=== PATIENT | female | born 1935 | race Two or more races ===

== ENCOUNTER 2017-08-28 18:43 | Inpatient (IN) | payer OTHER, MEDICARE ==
[~2017-08-28] VITALS: Ht 165.1 cm; Wt 74.6 kg
--- NOTE | 2017-08-28 19:10 | NUR ---
OK FOR PT TO HAVE BLANKET PER DR HOPSON.
--- NOTE | 2017-08-28 19:13 | NUR ---
REPORT GIVEN TO JAVIER ARELLANO TO ASSUME CARE FOR THIS PT.
--- NOTE | 2017-08-28 19:14 | NUR ---
Patient brought in by ambulance to be evaluated for the complaint of nausea, vomiting, and confusion which began approximately eight hours prior to arrival. Per bingo usher, the patient had three episodes of emesis today and two episodes while in route to the hospital. Patient also have a complaint of cough, headache & tactile fever, Patient is opening eyes to verbal stimuli and only oriented to name, , current location, and is not oriented to current time. Medical eval completed by Dr. Pugh.
[2017-08-28 20:03] LABS: microscopic required? NO
--- NOTE | 2017-08-28 20:07 | NUR ---
BEDPAN PLACED UNDER PT.
[2017-08-28 20:11] LABS: PLATELET COUNT 212 x10^3mcL (130-400)
[2017-08-28 20:13] LABS: UA SPECIFIC GRAVITY 1.015 (1.005-1.035); urine erythrocyte NEGATIVE (NEGATIVE)
[2017-08-28 20:14] LABS: BASOPHIL % 0 % (0-2); RED CELL DISTRIBUTION WIDTH 16.2 % (11.5-14.5)
--- NOTE | 2017-08-28 20:16 | NUR ---
PTS SON IS @ BEDSIDE.
[2017-08-28 20:31] LABS: CALCIUM 9.2 mg/dL (8.5-10.1); CARBON DIOXIDE 26.9 mmol/L (21-32); CHLORIDE SERUM 98 mmol/L (98-107); CREATININE SERUM 0.8 mg/dL (0.6-1.0); GLUCOSE SERUM 305 mg/dL (74-106); POTASSIUM SERUM 4.2 mmol/L (3.5-5.1); SODIUM SERUM 134 mmol/L (136-145)
[2017-08-28 20:36] LABS: ALBUMIN 3.8 g/dL (3.4-5.0); ALKALINE PHOSPHATASE 60 U/L (46-116); ALT/SGPT 21 U/L (14-59); AST/SGOT 17 U/L (15-37); FREE T4 1.15 ng/dL (0.76-1.46); TOTAL PROTEIN, SERUM 7.3 g/dL (6.4-8.2)
--- NOTE | 2017-08-28 20:39 | NUR ---
PT RESTING COMFORTABLY @ BEDSIDE.
[2017-08-28] MEDS ORDERED: STOOL SOFTENER100 MG PO (21:33)
[2017-08-28] MEDS ORDERED: LOSARTAN POTASS25 M1 PO (21:33)
[2017-08-28] MEDS ORDERED: FERROUS SULFAT325 M2 PO (21:33)
[2017-08-28] MEDS ORDERED: METFORMIN HCL1000 MG PO (21:34)
[2017-08-28] MEDS ORDERED: GLIPIZIDE5 M2 PO (21:34)
[2017-08-28] MEDS ORDERED: ASPIR 8181 MG PO (21:35)
[2017-08-28] MEDS ORDERED: JANUVIA50 M1 PO (21:35)
--- NOTE | 2017-08-28 21:39 | NUR ---
PT WAS AGGITATED AND WOULDNT KEEP ARM STRAIGHT, ARMBOARD WAS PLACED ON LEFT AC TO CONTINUE IV INFUSION.
--- NOTE | 2017-08-28 21:55 | NUR ---
PT LEFT TO CT.
--- NOTE | 2017-08-28 22:38 | NUR ---
REPORT GIVEN TO FELIX
[2017-08-29] VITALS (7 sets, daily range): BP systolic 97–118; BP diastolic 52–59; Ht 165.1 cm; Wt 74.6 kg
--- NOTE | 2017-08-29 00:30 | NUR ---
LP DONE AT BEDSIDE BY DR HOPSON.
[2017-08-29 01:33] LABS: MAGNESIUM 1.6 mg/dL (1.8-2.4); PHOSPHOROUS 2.9 mg/dL (2.5-4.9)
[2017-08-29 01:34] LABS: CHOLESTEROL/HDL RATIO 2.5
[2017-08-29 01:38] LABS: TOTAL PROTEIN CSF 45.6 mg/dL (15-45)
[2017-08-29 01:40] LABS: T3 TOTAL 1.03 ng/mL
[2017-08-29 01:44] LABS: FREE T4 1.23 ng/dL (0.76-1.46); FREE THYROXINE INDEX 3.5 ug/dL (1.4-4.5); T4(THYROXINE) 9.6 ug/dL (4.7-13.3)
[2017-08-29 02:00] LABS: APPEARANCE CSF HAZY; COLOR CSF PINK; WBC CSF 50 /cumm (0-5)
[2017-08-29 02:01] LABS: COLOR CSF LIGHT YELLOW; LYMPHOCYTE CSF 4 % (40-80); RBC CSF 9808 /cumm (0)
[2017-08-29 02:02] LABS: APPEARANCE CSF HAZY; LYMPHOCYTE CSF 3 % (40-80); MONOCYTE CSF 1 %; RBC CSF 170 /cumm (0); WBC CSF 40 /cumm (0-5)
--- NOTE | 2017-08-29 02:49 | NUR ---
PT RECEIVED FROM ER BY L[facility]EN, A/O X4, VERBALLY RESPONSIVE, C/O HEADACHE 12/27. LUNGS CLEAR, EVEN, UNLABORED. ON TELE 21, NSR WITH HR AT 97. BOWEL SOUNDS ACTIVE IN ALL QUADRANTS, ABD SOFT, NO DISTENTION/TENDERNESS NOTED. NO C/O N/V AT THIS TIME. SKIN WARM, DRY, INTACT. PT ON BEDREST S/P SPINAL TAP DONE IN THE ED. EXPLAINED TO PT RISKS OF AMBULATING SOON AFTER PROCEDURE, PT VERBALIZED UNDERSTANDING. BILATERAL PULSES PALPABLE, NO EDEMA NOTED. 20G IV TO LAC, NS RUNNING PER MD ORDER. PT TOLERATING WELL. NO ACUTE DISTRESS NOTED AT THIS TIME, EDUCATED ON HOW TO USE CALL LIGHT, BED IN LOWEST POSITION, WILL CONTINUE TO MONITOR
--- NOTE | 2017-08-29 03:30 | NUR ---
PT C/O HEADACHE, MEDICATED WITH TYLENOL PO PER ORDER. PT TOLERATED WELL. WILL CONTINUE TO MONITOR.
--- NOTE | 2017-08-29 04:57 | NUR ---
2ND BOLUS FINISHED, VSS. NO ACUTE DISTRESS NOTED AT THIS TIME. PATIENT ASLEEP. BED IN LOWEST POSITION, CALL LIGHT IN REACH, WILL CONTINUE TO MONITOR.
[2017-08-29 06:37] LABS: CALCIUM 7.9 mg/dL (8.5-10.1); CARBON DIOXIDE 27.4 mmol/L (21-32); CHLORIDE SERUM 106 mmol/L (98-107); CREATININE SERUM 0.8 mg/dL (0.6-1.0); GLUCOSE SERUM 121 mg/dL (74-106); MAGNESIUM 1.5 mg/dL (1.8-2.4); PHOSPHOROUS 3.7 mg/dL (2.5-4.9); POTASSIUM SERUM 3.3 mmol/L (3.5-5.1); SODIUM SERUM 140 mmol/L (136-145)
--- NOTE | 2017-08-29 07:30 | NUR ---
RECEIVED PATIENT IN BED, AWAKE ALERT AND ORIENTED. LATTER DAY SPEAKING, BUT DIES SPEAK A LITTLE AZERI. DENIES ANY H/A OR PAIN AT THIS TIME. IVF INFUSING WELL, SITE LEFT A/C PATENT. TELE 21 NSR. RESP EVEN AND UNLABORED, LUNGS CLEAR ON ROOM AIR. NO ACUTE DISTRESS NOTED. CALL LIGHT WITHIN REACH AND PT INSTRUCTED TO USE FOR ASSIST.
[2017-08-29 07:47] LABS: BASOPHIL % 0.1 % (0-2); PLATELET COUNT 184 x10^3mcL (130-400)
[2017-08-29 07:48] LABS: RED CELL DISTRIBUTION WIDTH 16.2 % (11.5-14.5)
--- NOTE | 2017-08-29 08:00 | NUR ---
DR MITCHELL AND MEDICAL TEAM INTO SEE PATIENT AND DISCUSS PLAN OF CARE.
--- NOTE | 2017-08-29 08:00 | NUR ---
PATIENT'S PLAN OF CARE WAS DISCUSSED AND REVIEWED WITH BASS FISHER:BALTA HOPKINS
--- NOTE | 2017-08-29 18:31 | NUR ---
PATIENT REMAINS IN BED. NO CHANGE IN CONDITION NOTED. NO C/O HEADACHE, DIZZINESS OR PAIN. IVF INFUSING WELL. PATIENT UP TO THE BATHROOM PRN WITH ASSIST. PATIENT REMINDED ON THE NEED FOR URINE SPECIMEN, PT ATTEMPTED TO GIVE A SPECIMEN BUT MISSED THE HAT. PT IS IN DROPLET ISOLATION AT THIS TIME. WILL ENDORSED TO [facility] NURSE.
--- NOTE | 2017-08-29 19:26 | NUR ---
I HAVE REVIEWED THE DATA COLLECTION BY BETTINA (NAME):BALTA HOPKINS ENTERED ON (DATE/TIME):08/29/17 I CONCUR WITH THE DATA AND ANY EXCEPTIONS OR COMMENTS ARE LISTED BELOW:
--- NOTE | 2017-08-29 20:00 | NUR ---
STATED HAVING NAUSEA. ZOFRAN 4MG ADMINISTERED SLOW IVP
--- NOTE | 2017-08-29 20:46 | NUR ---
STATED FEELING BETTER, STATED NAUSEA HAS GONE DOWN.
--- NOTE | 2017-08-29 21:47 | NUR ---
LATE ENTRY: 1936H - AWAKE AND ALERT, ORIENTED X 4. SPEECH CLEAR AND APPROPRIATE. NO FACIAL DROOP, NO SLURRING OF SPEECH. STATED HAVING HEADACHE. WAS MEDICATED WITH TYLENOL BY DAY SHIFT NURSE BALTA AT CHANGE OF SHIFT. HOB ELEVATED 30 DEG. CALL LIGHT WITHIN EASY REACH. BREATHING EVEN AND UNLABORED ON ROOM AIR. LUNG SOUNDS CLEAR. IVF OF NS AT 80ML/HR. ON DROPLET ISOLATION.
[2017-08-29 22:13] LABS: IRON 65 ug/dL (50-170)
[2017-08-29 22:15] LABS: TOTAL IRON BINDING CAPACITY 170 ug/dL (250-450)
[2017-08-29 22:32] LABS: RED BLOOD CELLS 4.17 M/mm3 (4.10-5.10)
--- NOTE | 2017-08-30 00:41 | NUR ---
EYES CLOSED, BREATHING EVEN AND UNLABORED ON ROOM AIR. NO MOANING OR GRIMACING NOTED. CALL LIGHT WITHIN EASY REACH. IVF OF NS AT 80ML/HR
--- NOTE | 2017-08-30 02:12 | NUR ---
PT WOKE UP. DISORIENTED, ACCIDENTALLY PULLED OUT IV. NEW IV INSERTED TO LEFT FOREARM 22 G. REORIENTED. REPOSITIONED.
--- NOTE | 2017-08-30 02:13 | NUR ---
AMBULATED WITH ASSISTANCE TO RESTROOM. VOIDED
[2017-08-30 05:05] VITALS: BP 134/70
--- NOTE | 2017-08-30 06:01 | NUR ---
EYES CLOSED, EASILY AWAKENED. KEPT ON DROPLET ISOLATION. BREATHING EVEN AND UNLABORED.
[2017-08-30 06:30] LABS: CALCIUM 8.6 mg/dL (8.5-10.1); CARBON DIOXIDE 28.9 mmol/L (21-32); CHLORIDE SERUM 110 mmol/L (98-107); CREATININE SERUM 0.7 mg/dL (0.6-1.0); GLUCOSE SERUM 114 mg/dL (74-106); MAGNESIUM 1.7 mg/dL (1.8-2.4); PHOSPHOROUS 2.3 mg/dL (2.5-4.9); POTASSIUM SERUM 4.8 mmol/L (3.5-5.1); SODIUM SERUM 144 mmol/L (136-145)
--- NOTE | 2017-08-30 07:20 | NUR ---
ASLEEP, BREATHING EVEN AND UNLABORED. ENDORSED TO NURSE KHAN
[2017-08-30 07:58] LABS: BASOPHIL % 0.2 % (0-2); PLATELET COUNT 190 x10^3mcL (130-400); RED CELL DISTRIBUTION WIDTH 16.5 % (11.5-14.5)
[2017-08-30 09:50] VITALS: BP 116/62
--- NOTE | 2017-08-30 11:40 | NUR ---
PT RESTING IN BED, DENIES ANY NEEDS AT THIS TIME. ASSISTED TO BATHROOM PRN. AMBULATORY WITH MINIMAL ASSIST FOR BALANCE. CURRENTLY IN BED WITH CALL LIGHT WITHIN REACH. WILL CONTINUE TO MONITOR.
[2017-08-30 13:54] VITALS: BP 129/43
[2017-08-30 14:02] VITALS: BP 112/56
--- NOTE | 2017-08-30 14:15 | NUR ---
PT ASLEEP, EASILY AROUSABLE TO VOICE. DENIES ANY NEEDS AT THIS TIME. FALL PRECAUTIONS IN PLACE.
--- NOTE | 2017-08-30 17:45 | NUR ---
PT RESTING COMFORTABLY IN BED. DENIES ANY PAIN OR DISCOMFORT AT THIS TIME. PT IN GOOD SPIRITS, LAUGHING AND JOKING. SON AT BEDSIDE, SUPPORTIVE OF CARE. WILL CONTINUE TO MONITOR.
--- NOTE | 2017-08-30 17:57 | NUR ---
DR CROWE AT BEDSIDE TO SPEAK WITH PATIENT AND SON. OKAY FOR OUTSIDE FOOD NOTED.
[2017-08-30 18:00] VITALS: BP 139/71
--- NOTE | 2017-08-30 19:17 | NUR ---
AOX4. TELE #21, SR WITH 1ST DEGREE. LUNGS CLEAR ON RA. PULSES PALPABLE. NO EDEMA NOTED. BOWEL SOUNDS ACTIVE. PT REPORTS HAVING LOOSE BM'S. WILL ATTEMPT TO COLLECT STOOL SAMPLE. SKIN INTACT. DENIES PAIN, N/V AT THIS TIME. NS @ 80 ML/HR TO LEFT HAND, NO REDNESS OR SWELLING. BED IN LOW POSITION, CALL LIGHT IN REACH. INSTRUCTED TO CALL FOR ASSISTANCE.
[2017-08-30 21:54] VITALS: BP 130/77
--- NOTE | 2017-08-31 02:33 | NUR ---
RESTING WITH EYES CLOSED. AWAKENS EASILY TO VERBAL STIMULI. BREATHING EVEN AND UNLABORED. NO ACUTE DISTRESS NOTED. WILL CONTINUE TO MONITOR.
--- NOTE | 2017-08-31 06:06 | NUR ---
NO ACUTE CHANGES DURING SHIFT. WILL ENDORSE TO ONCOMING RN.
[2017-08-31 06:15] VITALS: BP 128/68
[2017-08-31 06:41] LABS: CALCIUM 8.6 mg/dL (8.5-10.1); CARBON DIOXIDE 30.2 mmol/L (21-32); CHLORIDE SERUM 109 mmol/L (98-107); CREATININE SERUM 0.6 mg/dL (0.6-1.0); GLUCOSE SERUM 110 mg/dL (74-106); MAGNESIUM 1.8 mg/dL (1.8-2.4); POTASSIUM SERUM 4.4 mmol/L (3.5-5.1); SODIUM SERUM 143 mmol/L (136-145)
--- NOTE | 2017-08-31 07:30 | NUR ---
AAO TIMES 4. TELE # 21 SR. VS'S STABLE. NO SOB. LUNGS CTA. NO SOB. O2 SAT ON RA 95%. BS'S ACTIVE TIMES 4. TURNER WITH SLIGHT GENERALIZED WEAKNESS. PERIPHERAL PULSES PALPABLE. NO EDEMA. SCD BLE. COOPERATIVE. NO C/O PAIN. NO SOB. SKIN CDI. ISOLATION TO R/O MENENGITIS. PT C/O DIARRHEA THIS AM, WILL SEND NEXT STOOL SAMPLE IF POSSIBLE, PATIENT AWARE.
[2017-08-31 08:40] LABS: BASOPHIL % 0.9 % (0-2); PLATELET COUNT 174 x10^3mcL (130-400)
[2017-08-31 08:42] LABS: RED CELL DISTRIBUTION WIDTH 17.4 % (11.5-14.5)
[2017-08-31 08:43] LABS: rbc morphology (normal/abnorm) ABNORMAL (NORMAL)
[2017-08-31 09:45] VITALS: BP 144/73
[2017-08-31 12:05] VITALS: BP 135/71
--- NOTE | 2017-08-31 16:37 | NUR ---
PHYSICAL THERAPY DAILY NOTES CO-SIGN All documentation done by the [employer] for 08/31/17 has been reviewed. I agree with the documentation. Reviewed/Co-Signed by: Kera Byers DPT Documentation Done by:ANABEL YANG, FARHAT I CONCUR W/ELIGIBILITY CLERK NOTES. Pt DEMO'S ACTIVE PARTICIPATION IN THERAPY.
[2017-08-31] MEDS ORDERED: LAC PO (16:39)
[2017-08-31] MEDS ORDERED: FLA250 PO (16:48)
[2017-08-31 16:59] VITALS: BP 135/71
--- NOTE | 2017-08-31 18:42 | NUR ---
DC'D IV SITE ANGIO INTACT. GAVE PT DISCHARGE INSTRUCTIONS AND PRESCRIPTION. SON PRESENT. PT AND SON VERBALIZED "I UNDERSTAND" TO ALL INSTRUCTIONS. COOPERAITVE. DENIES DISCOMFORT.
== END 2017-08-31 18:45 | disposition home or self-care (01) | DRG 720 ==
LOC: ED 18:43 → DU 21:50
PROVIDERS: Emergency Medicine; Family Medicine; ADMIT Student in an Organized Health Care Education/Training Program
PROC: 009U3ZX Drainage of Spinal Canal, Percutaneous Approach, Diagnostic (ICD-10-PCS; principal; 2017-08-28)
DX: A41.9 Sepsis, unspecified organism (principal); G93.41 Metabolic encephalopathy; D68.69 Other thrombophilia; E11.65 Type 2 diabetes mellitus with hyperglycemia; K52.1 Toxic gastroenteritis and colitis; E87.1 Hypo-osmolality and hyponatremia; R65.20 Severe sepsis without septic shock; D50.9 Iron deficiency anemia, unspecified; Z53.29 Procedure and treatment not carried out because of patient's decision for other reasons; E66.3 Overweight; I10 Essential (primary) hypertension; E78.5 Hyperlipidemia, unspecified; Z79.82 Long term (current) use of aspirin; Z68.27 Body mass index [BMI] 27.0-27.9, adult; Z79.84 Long term (current) use of oral hypoglycemic drugs; Z98.42 Cataract extraction status, left eye; Z98.41 Cataract extraction status, right eye; Z79.899 Other long term (current) drug therapy
CPT/HCPCS: 82962; 83880; 84439; 86788; 86789; 87046; 87046-59; 87804; 97110-GP; 97116-GP; 97530-GP; J0133; J0696; J2001; J2405; J3370; J3490; J7030; J7040; Q0092

== ENCOUNTER 2017-11-21 07:19 | Inpatient (IN) | payer OTHER, MEDICARE ==
[~2017-11-21] VITALS: Ht 162.6 cm; Wt 74.4 kg
[~2017-11-21 07:19] MED LIST: ASPIR 8181 MG PO; FERROUS SULFAT325 M2 PO; FLA250 PO; GLIPIZIDE5 M2 PO; JANUVIA50 M1 PO; LAC PO; LOSARTAN POTASS25 M1 PO; METFORMIN HCL1000 MG PO; STOOL SOFTENER100 MG PO
[2017-11-21 08:06] LABS: PLATELET COUNT 197 x10^3mcL (130-400)
[2017-11-21 08:11] LABS: UA SPECIFIC GRAVITY 1.015 (1.005-1.035); microscopic required? YES; urine erythrocyte 1+ (NEGATIVE)
[2017-11-21 08:15] LABS: CALCIUM 9.3 mg/dL (8.5-10.1); CARBON DIOXIDE 25.3 mmol/L (21-32); CHLORIDE SERUM 101 mmol/L (98-107); CREATININE SERUM 0.8 mg/dL (0.6-1.0); GLUCOSE SERUM 276 mg/dL (74-106); POTASSIUM SERUM 4.2 mmol/L (3.5-5.1); SODIUM SERUM 138 mmol/L (136-145)
[2017-11-21 08:28] LABS: ALBUMIN 3.8 g/dL (3.4-5.0); ALKALINE PHOSPHATASE 52 U/L (46-116); ALT/SGPT 24 U/L (14-59); AST/SGOT 19 U/L (15-37); BILIRUBIN TOTAL 0.93 mg/dL (0.20-1.00); FREE T4 1.37 ng/dL (0.76-1.46); LIPASE 133 IU/L (73-393); TOTAL PROTEIN, SERUM 7.2 g/dL (6.4-8.2)
[2017-11-21 08:36] LABS: RED CELL DISTRIBUTION WIDTH 15.9 % (11.5-14.5)
[2017-11-21] MEDS ORDERED: JANUVIA100 M1 PO (09:53)
[2017-11-21] MEDS ORDERED: GABAPENTIN100 M2 PO (09:55)
[2017-11-21 10:13] LABS: MAGNESIUM 1.6 mg/dL (1.8-2.4); PHOSPHOROUS 3.7 mg/dL (2.5-4.9)
[2017-11-21 10:17] LABS: CHOLESTEROL/HDL RATIO 2.7
[2017-11-21 11:50] VITALS: BP 112/60
[2017-11-21 12:25] LABS: BAND NEUTROPHIL 5 % (0-10); MONOCYTE 3 % (0-7); SEGMENTED NEUTROPHILS 86 % (37-75); rbc morphology (normal/abnorm) ABNORMAL (NORMAL)
[2017-11-21 12:26] LABS: acanthocyte (spur cell) 2+; burr cell (echinocyte) 2+
[2017-11-21 12:27] LABS: PLATELET MORPHOLOGY LARGE PLATELET SEEN; ovalocyte/elliptocyte 2+; schistocyte (helmet cell) 1+; tear drop cell (dacryocyte) 2+
[2017-11-21 13:22] VITALS: BP 123/72
[2017-11-21 16:36] VITALS: BP 125/51
[2017-11-21 20:07] VITALS: BP 130/64
[2017-11-22 03:26] LABS: BASOPHIL % 0.6 % (0-2); PLATELET COUNT 182 x10^3mcL (130-400)
[2017-11-22 03:29] LABS: RED CELL DISTRIBUTION WIDTH 15.8 % (11.5-14.5)
[2017-11-22 03:58] LABS: CALCIUM 8.1 mg/dL (8.5-10.1); CARBON DIOXIDE 26.9 mmol/L (21-32); CHLORIDE SERUM 108 mmol/L (98-107); CREATININE SERUM 0.7 mg/dL (0.6-1.0); GLUCOSE SERUM 115 mg/dL (74-106); MAGNESIUM 1.9 mg/dL (1.8-2.4); POTASSIUM SERUM 4.2 mmol/L (3.5-5.1); SODIUM SERUM 141 mmol/L (136-145)
[2017-11-22 05:17] VITALS: BP 111/54
[2017-11-22 09:31] VITALS: BP 144/78
[2017-11-22 17:22] VITALS: BP 127/61
[2017-11-22 21:17] VITALS: BP 135/65
[2017-11-23] VITALS (7 sets, daily range): BP systolic 72–136; BP diastolic 48–72; Ht 162.6 cm; Wt 74.4 kg
[2017-11-23 06:50] LABS: CALCIUM 8.3 mg/dL (8.5-10.1); CARBON DIOXIDE 24.7 mmol/L (21-32); CHLORIDE SERUM 108 mmol/L (98-107); CREATININE SERUM 0.6 mg/dL (0.6-1.0); GLUCOSE SERUM 154 mg/dL (74-106); POTASSIUM SERUM 4.5 mmol/L (3.5-5.1); SODIUM SERUM 141 mmol/L (136-145)
[2017-11-23 06:51] LABS: BASOPHIL % 0.2 % (0-2); PLATELET COUNT 177 x10^3mcL (130-400)
[2017-11-23 07:09] LABS: RED CELL DISTRIBUTION WIDTH 15.7 % (11.5-14.5); rbc morphology (normal/abnorm) ABNORMAL (NORMAL)
[2017-11-23] MEDS ORDERED: CYCLOBENZAPRINE5 MG PO (15:04)
[2017-11-23] MEDS ORDERED: LEVAQUIN750 MG PO (15:25)
[2017-11-23] MEDS ORDERED: FLA500 PO (15:27)
[2017-11-23] MEDS ORDERED: LAC PO (15:28)
== END 2017-11-23 20:57 | DRG 720 ==
LOC: ED 07:19 → DU 09:37
PROVIDERS: Emergency Medicine; Family Medicine
DX: A41.9 Sepsis, unspecified organism (principal); E11.40 Type 2 diabetes mellitus with diabetic neuropathy, unspecified; D68.59 Other primary thrombophilia; M48.56XA Collapsed vertebra, not elsewhere classified, lumbar region, initial encounter for fracture; G90.8 Other disorders of autonomic nervous system; M84.47 Pathological fracture, ankle, foot and toes; E83.42 Hypomagnesemia; E11.9 Type 2 diabetes mellitus without complications; E86.0 Dehydration; I10 Essential (primary) hypertension; W18.39XA Other fall on same level, initial encounter; Y93.89 Activity, other specified; Y92.89 Other specified places as the place of occurrence of the external cause; Y99.8 Other external cause status; Z98.42 Cataract extraction status, left eye; Z98.41 Cataract extraction status, right eye; R31.9 Hematuria, unspecified; R65.20 Severe sepsis without septic shock; M47.9 Spondylosis, unspecified; K52.9 Noninfective gastroenteritis and colitis, unspecified
CPT/HCPCS: 82962; 83880; 84439; 87046; 87046-59; 87804; 94150; 97110-GP; 97116-GP; 97530-GP; J1885; J1956; J2270; J2405; J2543; J3370; J3475; J3490; J7030; J7050; Q0092

== ENCOUNTER 2019-02-11 05:26 | Emergency (ER) | payer MEDICARE, OTHER ==
[~2019-02-11] VITALS: Ht 165.1 cm; Wt 52.2 kg
[~2019-02-11 05:26] MED LIST changes: +CYCLOBENZAPRINE5 MG PO; +FLA500 PO; +GABAPENTIN100 M2 PO; +GLIPIZIDE10 M2 PO; +JANUVIA100 M1 PO; +LEVAQUIN750 MG PO
[2019-02-11 05:31] VITALS: Ht 165.1 cm; Wt 52.2 kg
[2019-02-11 07:57] LABS: PLATELET COUNT 215 x10^3mcL (130-400)
[2019-02-11 08:08] LABS: RED CELL DISTRIBUTION WIDTH 16.7 % (11.5-14.5)
[2019-02-11 08:15] LABS: CALCIUM 9.6 mg/dL (8.5-10.1); CARBON DIOXIDE 26.7 mmol/L (21-32); CHLORIDE SERUM 108 mmol/L (98-107); CREATININE SERUM 0.6 mg/dL (0.6-1.0); GLUCOSE SERUM 130 mg/dL (74-106); SODIUM SERUM 142 mmol/L (136-145)
[2019-02-11 08:19] LABS: ALKALINE PHOSPHATASE 60 U/L (46-116); ALT/SGPT 16 U/L (14-59); AST/SGOT 11 U/L (15-37); BILIRUBIN TOTAL 0.75 mg/dL (0.20-1.00); TOTAL PROTEIN, SERUM 6.4 g/dL (6.4-8.2)
[2019-02-11 08:20] LABS: ALBUMIN 3.3 g/dL (3.4-5.0)
[2019-02-11 08:30] LABS: BAND NEUTROPHIL 0 % (0-10); BASOPHIL 0 % (0-2); MONOCYTE 9 % (0-7); SEGMENTED NEUTROPHILS 55 % (37-75)
[2019-02-11 08:31] LABS: rbc morphology (normal/abnorm) ABNORMAL (NORMAL)
[2019-02-11 08:33] LABS: ovalocyte/elliptocyte 1+; schistocyte (helmet cell) 1+; target cell (codocyte) 1+
[2019-02-11 11:58] VITALS: BP 154/68
== END 2019-02-11 11:58 | disposition home or self-care (01) ==
LOC: ED 05:26
PROVIDERS: Emergency Medicine
DX: S39.012A Strain of muscle, fascia and tendon of lower back, initial encounter (principal); R42 Dizziness and giddiness; N39.0 Urinary tract infection, site not specified; I10 Essential (primary) hypertension; E11.9 Type 2 diabetes mellitus without complications; E78.00 Pure hypercholesterolemia, unspecified; W06.XXXA Fall from bed, initial encounter; Y93.89 Activity, other specified; Y92.098 Other place in other non-institutional residence as the place of occurrence of the external cause; Y99.8 Other external cause status
CPT/HCPCS: 36415; 82962; J1885

== ENCOUNTER 2020-09-07 20:32 | Inpatient (IN) | payer OTHER, MEDICARE, SELFPAY ==
[~2020-09-07] VITALS: Ht 157.5 cm; Wt 65.8 kg
[2020-09-07 20:33] VITALS: Ht 157.5 cm; Wt 65.8 kg
--- NOTE | 2020-09-07 22:46 | NUR ---
PER PT OK TO CONTACT SON/ SON'S REGARDING HER CARE. SON: ARNOLD: [phone]. SON'S : [phone]
--- NOTE | 2020-09-07 23:05 | NUR ---
PT BIB SON D/T GENERAL WEAKNESS THAT HAS "INCREASED OVER LAST FEW DAYS" PT IS AAOX4, NAD NOTED. PER SON, PT FELT WEAK AND FELL TO GROUND, - INJURY, -LOC. PER SON PT WA SLOWERED TO GROUND SLOWLY BUT HAS BEEN WEAK OVER LAST FEW DAYS WITH FEVER. PT PLACED ON FULL CM, VSS. WAITING MSE, WILL CONTINUE TO MONITOR PT.
[2020-09-07 23:39] LABS: BASOPHIL % 0.4 % (0.2-1.3); PLATELET COUNT 196 x10^3mcL (179-408)
[2020-09-07 23:51] LABS: RED CELL DISTRIBUTION WIDTH 15.8 % (12.3-17.7)
[2020-09-07 23:55] LABS: CALCIUM 8.8 mg/dL (8.5-10.1); CARBON DIOXIDE 26.3 mmol/L (21-32); CHLORIDE SERUM 100 mmol/L (98-107); GLUCOSE SERUM 314 mg/dL (74-106); POTASSIUM SERUM 4.2 mmol/L (3.5-5.1); SODIUM SERUM 137 mmol/L (136-145)
[2020-09-08 00:01] LABS: ALBUMIN 3.6 g/dL (3.4-5.0); ALKALINE PHOSPHATASE 50 U/L (46-116); ALT/SGPT 22 U/L (14-59); AST/SGOT 17 U/L (15-37); C REACTIVE PROTEIN 7.1 mg/dL (<=0.9); LACTIC DEHYDROGENASE (LDH) 177 U/L (100-190); TOTAL PROTEIN, SERUM 6.9 g/dL (6.4-8.2)
--- NOTE | 2020-09-08 00:26 | NUR ---
RT AT BEDSIDE
--- NOTE | 2020-09-08 01:09 | NUR ---
PLACED BEDPAN FOR PT, PT UNABLE TO VOID AT THIS TIME. MD KEMP MADE AWARE.
--- NOTE | 2020-09-08 01:24 | NUR ---
UNABLE TO OBTAIN ABG. DR. KEMP MADE AWARE.
--- NOTE | 2020-09-08 02:18 | NUR ---
PT IN BED RESTING, PT ON FULL CM, VSS. WILL CONTINUE TO MONITOR PT. SIDERAILS UP FOR SAFETY AT THIS TIME. CALL LIGHT WITHIN REACH.
[2020-09-08 02:19] LABS: rbc morphology (normal/abnorm) ABNORMAL (NORMAL)
[2020-09-08 02:20] LABS: schistocyte (helmet cell) 1+
--- NOTE | 2020-09-08 03:19 | NUR ---
PT NOTED O2 SAT IN 80'S, PT PLACED ON NON-REBREATHER MASK, O2 SAT @ 96% ON 10L.
[2020-09-08 04:53] VITALS: BP 122/90
[2020-09-08 05:08] LABS: UA SPECIFIC GRAVITY 1.025 (1.005-1.035); microscopic required? YES; urine erythrocyte 1+ (NEGATIVE)
--- NOTE | 2020-09-08 05:38 | NUR ---
PT ALOC AT HTIS TIME. PT NOT BALE TO ANSWER QUESTIONS APPROPRIATELY, HR 140'S AT THIS TIME. BP WNL. PT UNABLE TO SWALLOW PILLS AT THIS TIME. WILL PLACE CALL FOR TYLENOL CO ORDERS. WILL CONTINUE TO MONITOR PT.
--- NOTE | 2020-09-08 05:44 | NUR ---
CALLED [facility] [place] TO SPEAK WITH MD WONG REGARDING T 101 AND PT UNABLE TO SWALLOW PILLS AT THIS TIME. WAITING FOR CALL BACK.
--- NOTE | 2020-09-08 06:01 | NUR ---
PER MD WONG, DECREASE IV FLUIDS TO 80ML/HR INSTEAD OF 150ML/HR. ORDERS DONE AND PLACED. WILL PASS INFORMATION TO DAY SHIFT NURSE WELL.
--- NOTE | 2020-09-08 06:25 | NUR ---
PT IS MORE ALERT AT THIS TIME, AND ABLE TO STATE HER NAME. HR 120'S BACK TO BASELINE OF ARRIVAL.
--- NOTE | 2020-09-08 07:10 | NUR ---
PT TAKEN OFF ER FLOOR TO CT AT THIS TIME
--- NOTE | 2020-09-08 07:15 | NUR ---
REPORT GIVEN TO YANA HERRERA, SHE WILL ASSUME CARE OF PT AT THIS TIME.
--- NOTE | 2020-09-08 07:16 | NUR ---
REPORT RECIEVED FROM JAVIER CHAMPION. I WILL ASSUME FURTHER CARE OF THIS PT
--- NOTE | 2020-09-08 07:20 | NUR ---
PT NOTED LAYING IN ER GURNEY IN POSITION OF COMFORT. PT AAOX4, SPEAKING IN FULL, CLEAR SENTENCES, RESP E/U AT THIS TIME. PT DENIES ANY PAIN AT THIS TIME. PT URINATED USING BED FRASER AT THIS TIME, PT TOLERATED WELL. FLUIDS INFUSING PER EMAR ORDERS. WILL CONTINUE TO MONITOR
--- NOTE | 2020-09-08 08:19 | NUR ---
SPOKE WITH PT DAUGHTER REGARDING PT STATUS. INFORMED PT DAUGHTER WE ARE STILL WAITING FOR A BED ON TELE UNIT AT THIS TIME. PER DAUGHTER SHE WILL CALL BACK FOR UPDATE LATER
--- NOTE | 2020-09-08 09:09 | NUR ---
PT POSITIONED IN BED AND GIVEN WIPES TO CLEAN FACE AT THIS TIME
--- NOTE | 2020-09-08 09:30 | NUR ---
PT GIVEN BREAKFAST TRAY AT THIS TIME
--- NOTE | 2020-09-08 10:10 | NUR ---
PT BLOOD PRESSURE NOTED LOW AT THIS TIME. BLOOD PRESSURE CUFF REAJUSTED AND BLOOD PRESSURE RETAKEN. BLOOD PRESSURE REMAINS 88/52 MAP OF 64. PT DENIES ANY DIZZINESS AT THIS TIME AND IS SPEAKING IN FULL, CLEAR SENTENCES. PAGED AT THIS TIME. WILL FOLLOW UP
--- NOTE | 2020-09-08 10:21 | NUR ---
SPOKE WITH DR MUNOZ REGARDING PT BLOOD PRESSURE. PER DR MUNOZ, HANG 1L OF NORMAL SALINE AT MAINTENANCE RATE OF 80ML/HR. ORDER READ BACK TO CONFIRM. WILL CONTINUE TO MONITOR
--- NOTE | 2020-09-08 10:28 | NUR ---
ONE LITER NORMAL SALINE STARTED AT 80ML/HR PER VERBAL ORDER FROM DR CHIN. WILL CONTINUE TO MONITOR
--- NOTE | 2020-09-08 13:00 | NUR ---
PT GIVEN LUNCH AT THIS TIME. PT SITTING UP IN ER LANDEN EATING. NO DISTRESS NOTED. WILL CONTINUE TO MONITOR
--- NOTE | 2020-09-08 14:07 | NUR ---
PT READJUSTED IN ER LANDEN FOR COMFORT. PT AAOX4, RESP E/U, NO DISTRESS NOTED. PT DENIES ANY PAIN AT THIS TIME. FLUIDS INFUSING PER EMAR ORDERS. WILL CONTINUE TO MONITOR
--- NOTE | 2020-09-08 15:57 | NUR ---
REPORT CALLED TO JAVIER NEWBERRY ON OUT PATIENT UNIT. SHE WILL ASSUME FURTHER CARE OF THIS PT. PT TO GO TO BED 3
[2020-09-08 16:25] VITALS: BP 108/63
--- NOTE | 2020-09-08 16:25 | NUR ---
RECEIVED VIA GURNEY FROM ER TO OPS BED #3. PT AWAKE AND ALERT X3. FOLLOWS COMMANDS. TEMP 97.8. CLINICAL TEAM LEAD SHOWS SINUS RHYTHM RATE 80. BP= 108/63. RESP 18 EVEN. PULSE OX 98% ON OXYGEN 2L NC. IV PATENT LEFT WRIST INFUSING NORMAL SALINE 80CC/HR. PT VOIDED VIA BEDPAN. PERICARE ASSISTED. REPOSITIONED IN BED. DENIES PAIN. SIDE RAILS UP X2. CALL LIGHT IN REACH.
--- NOTE | 2020-09-08 16:45 | NUR ---
RBS= 289MG. CALL TO PHARMACY FOR DELIVERY REG INSULIN VIAL TO COVER FOR RISS. PT SERVED DINNER MEAL. CALL LIGHT IN REACH.
[2020-09-08 18:00] VITALS: BP 101/56
--- NOTE | 2020-09-08 18:27 | NUR ---
AWAITING PHARMACY TO DELIVER REG INSULIN X 2 CALLS. STATES "WILL DELIVER IN 30 MIN."
--- NOTE | 2020-09-08 18:53 | NUR ---
RISS 9 UNITS SQ GIVEN.
[2020-09-08 19:22] VITALS: BP 99/46
[2020-09-08 20:00] VITALS: BP 115/68
--- NOTE | 2020-09-08 20:00 | NUR ---
PATIENT RECEIVED IN BED AWAKE, ALERT AND ORIENTED X4, SPEECH CLEAR, FORGETFUL AT TIMES,DENIED HEADACHE NOR DIZZINESS. NO RESP. DISTRESS NOTED DURING BEDSIDE HANDS OFF REPORT, FOUND ON 2LNC SATURATING AT 100%, PULSE OXIMETRY PROBE TO RT MIDDLE FINGER SECURED. BS-FINE CRACKLES BASES, PATIENT STATED MILD SOB ON EXERTION, DAVID TEST-NEGATIVE,AWAITING FOR PCR RESULT, PATIENT KEPT ON CONTACT AND DROPLETS ISOLATION, PROPER PPE WORN PRIOR TO CONTACT, PRACTICE HAND HYGIENE. DENIED CHEST PAINS, HR=85BPM, PLACED ON BEDSIDE TEACHER INSTRUMENTAL, CARDIAC THYRHM SHOWING SR. SALINE LOCKS TO RT AND LEFT FOREARM PATENT AND INTACT SACURED WITH TAPE. PATIENT WITH GENERALIZED WEAKNESS, NEEDS ANTICIPATED, CALL LIGHT IN REACH, PATIENTABLE TO TURN SELF IN BED INDEPENDENTLY, ABLE TO PARTICIPATE WITH ADL'S WITH MIN ASSIST. VOIDS FREELY, USE BEDPAN, PATIENT WITH UTI-DENIED PAIN UPON URINATION, ENCOURAGED FLUIDS. PATIENT WITH FAIR APPETITE STATED, DENIED N/V/D. SAFETY/FALL PRECAUTIONS MAINTAINED, PATIENT INFORMED ABOUT POC WHILE IN OPS,ALL QUESTIONS AND CONCERNS ADDRESSED. WILL CONTINUE TO MONITOR.
--- NOTE | 2020-09-08 21:43 | NUR ---
SCHEDULED MEDS ADMINISTERED THIS TIME, PATIENT INFORMED ABOUT EACH MEDS ACTIONS AND PURPOSE PRIOR TO ADMINISTRATION. PATIENT PLACED IN HIGH FOWLERS POSITION, TOOK PILSS WELL NO DIFF.
--- NOTE | 2020-09-08 22:00 | NUR ---
PATIENT CALLED THIS TIME, STATED NEEDED TO MOVE HER BOWELS.PROVIDED WITH BEDPAN. INSTRUCTED TO CALL NURSE WHEN DONE.
--- NOTE | 2020-09-08 22:20 | NUR ---
PATIENT CALLED AND ATTENDED TO IMMEDIATLEY, PATIENT HAND SOFT BROWN STOOL, KEPT CLEAN AND DRY. ALSO VOIDED WITHOUT DIFF.DENIED PAINN UPON URINATION. COVERED AND KEPT COMFORTABLE.
[2020-09-09] VITALS: BP 133/77
--- NOTE | 2020-09-09 | NUR ---
ROUNDS MADE PATIENT SLEEPING COMFORTABLY AND QUITELY, EASILY AWAKEN WHEN NAME CALLED. 02 AT 2LNC MAINTAINED SATURATING AT 100%, TOLERATING. SR ON THE MONITOR.SAFETY/FALL PRECAUTIONS MAINTAINED. WILL CONTINUE TO MONITOR.
--- NOTE | 2020-09-09 03:00 | NUR ---
ROUNDS MADE PATIENT SLEEPING QUIETLY AND COMFORTABLY AT THIS TIME, NO DISTRESS NOTED, MAINTAINED AT 2LNC SATURATING AT 100%. ABLE TO TURN SELF IN BED INDEPENDENTLY. SR ON THE MONITOR. WILL CONTINUE TO MONITOR.
[2020-09-09 05:19] VITALS: BP 124/83
--- NOTE | 2020-09-09 06:36 | NUR ---
BEDSIDE HANDS OFF REPORT PERFORM WITH INCOMING NURSE ARIEL.
[2020-09-09 08:00] VITALS: BP 105/60
--- NOTE | 2020-09-09 08:00 | NUR ---
PATIENT IS RESTING QUIETLY AND CONFORTABLY AT THIS TIME.NO DISTRES NOTED.OXYGEN AT 2LNC SATURATING AT100%.ABLE TO TURN SELF IN BED.VS WNL.WILL CONTINUE TO MONITOR.
[2020-09-09 09:19] LABS: BASOPHIL % 0.3 % (0.2-1.3); PLATELET COUNT 153 x10^3mcL (179-408)
[2020-09-09 09:56] LABS: ALKALINE PHOSPHATASE 41 U/L (46-116); ALT/SGPT 18 U/L (14-59); AST/SGOT 19 U/L (15-37); BILIRUBIN TOTAL 0.8 mg/dL (0.20-1.00); CALCIUM 8.6 mg/dL (8.5-10.1); CARBON DIOXIDE 28.4 mmol/L (21-32); CHLORIDE SERUM 103 mmol/L (98-107); CREATININE SERUM 0.9 mg/dL (0.6-1.0); GLUCOSE SERUM 204 mg/dL (74-106); HDL CHOLESTEROL 57 mg/dL (40-60); MAGNESIUM 1.6 mg/dL (1.8-2.4); PHOSPHOROUS 2.2 mg/dL (2.5-4.9); POTASSIUM SERUM 3.8 mmol/L (3.5-5.1); SODIUM SERUM 138 mmol/L (136-145); TRIGLYCERIDES 96 mg/dL (<150)
[2020-09-09 09:57] LABS: ALBUMIN 2.8 g/dL (3.4-5.0); CHOLESTEROL 130 mg/dL (<200); CHOLESTEROL/HDL RATIO 2.3; TOTAL PROTEIN, SERUM 6.1 g/dL (6.4-8.2)
--- NOTE | 2020-09-09 11:30 | NUR ---
RANDOM BLOOD SUGAR 242MG WITH RISS 6 UNIT SQ ARM.PUT PATIENT ON THE CHAIR FOR 30MIN TOLERATED WELL RN WAS ASSISTING BACK TO BED.CALL LIGHT CLOSE TO THE PATIENT.
[2020-09-09 12:00] VITALS: BP 114/68
[2020-09-09 12:48] LABS: rbc morphology (normal/abnorm) NORMAL (NORMAL)
[2020-09-09 16:00] VITALS: BP 116/66
--- NOTE | 2020-09-09 16:20 | NUR ---
BLOOD SUGAR LEVEL 371MG 15 UNIT RISS.DR MUNOZ ORDER RT FOR HOME O2, SS FOR HOME O2 CONTINOUS PULSE OX.
--- NOTE | 2020-09-09 17:31 | NUR ---
AT 1330 DR MUNOZ AT BEDSIDE NO NEW ORDER WAS GIVEN.
--- NOTE | 2020-09-09 18:57 | NUR ---
REPORT GIVE TO CONNOR HERRERA CARE ENDORSE AT THIS TIME.
--- NOTE | 2020-09-09 19:26 | NUR ---
REPORT WAS GIVEN TO JAVIER HOOPER.
--- NOTE | 2020-09-09 20:19 | NUR ---
T 100 RR18 BP 109/64/ MAP 82 SAT 100% ON 2 L NC APPEARS IN NAD A THIS TIME / RESTING
--- NOTE | 2020-09-09 22:04 | NUR ---
CALLED PHARMACY RE PTS NEURONTIN DOSE 2100/
--- NOTE | 2020-09-09 22:32 | NUR ---
HS SNACK REQUESTED / WATER AND CRACKERS GIVEN D/T PTS BS 292
[2020-09-10 00:33] VITALS: BP 100/66
--- NOTE | 2020-09-10 00:40 | NUR ---
PT APPEARS TO BE SLEEPING RESPS EASY / PT ASKED TO REMOVE O2 AND IS CURRENTLY AT 97/ R/A NEEDS/ ASKS FOR ASSIST TO TURN AFEBRILE AT THIS TIME
--- NOTE | 2020-09-10 01:06 | NUR ---
SLEEPING RESPS EASY NO 02 / SAT 95 R/A
--- NOTE | 2020-09-10 04:52 | NUR ---
RESIDENT CALLED RE PTS TEMP 102.5 AND CHNAGING CARDIAC RYTHM AFIB/FLUTTER/ NO ORDERS GIVEN AT THIS TIME BP STABLE WITH A MAP OG 65 AT THIS TIME
[2020-09-10 05:26] VITALS: BP 100/60
--- NOTE | 2020-09-10 05:31 | NUR ---
NO CHANGE IN PT CONDITION/ PT HAS BEEN WITH OUT O2 ALL NIGHT FOR SAT 96/98 % R/A AFEBRILE VSS PER FLOW SHEET/ PT IN NAD / APPEARS TO HAVE SLEPT WELL ON HOURLY CHECKS. NO VOICED CONCERNS / PT IS ASKING FOR HER BREAKFAST
--- NOTE | 2020-09-10 08:00 | NUR ---
PATIENT AWAKE/ALERT/ORIENTED TO PERSON,PLACE AND TIME.iV SITE ON LFA INTACT.PATOENT IN OXYGEEN IN AND OUT 2LNC VIA OXYMIZER 95%. CALL LIGHT WITHIN REACH.SIDE RAILS UP X2 GURNEY AT LOWEST POSITION.PATIENT EAT 75% OF HER BREAKFAST WAS SIITING ON HER CHAIR WELL TOLERATED.
[2020-09-10 08:03] VITALS: BP 98/58
[2020-09-10 08:04] LABS: BASOPHIL % 0.3 % (0.2-1.3); PLATELET COUNT 160 x10^3mcL (179-408)
[2020-09-10 09:06] LABS: RED CELL DISTRIBUTION WIDTH 16.2 % (12.3-17.7)
[2020-09-10 09:13] LABS: rbc morphology (normal/abnorm) NORMAL (NORMAL)
[2020-09-10 09:24] LABS: ALKALINE PHOSPHATASE 42 U/L (46-116); ALT/SGPT 27 U/L (14-59); AST/SGOT 15 U/L (15-37); BILIRUBIN TOTAL 0.64 mg/dL (0.20-1.00); CALCIUM 9.3 mg/dL (8.5-10.1); CARBON DIOXIDE 29.8 mmol/L (21-32); CHLORIDE SERUM 106 mmol/L (98-107); CREATININE SERUM 0.7 mg/dL (0.6-1.0); GLUCOSE SERUM 152 mg/dL (74-106); MAGNESIUM 1.8 mg/dL (1.8-2.4); PHOSPHOROUS 2.1 mg/dL (2.5-4.9); POTASSIUM SERUM 3.9 mmol/L (3.5-5.1); SODIUM SERUM 143 mmol/L (136-145); TOTAL PROTEIN, SERUM 6.2 g/dL (6.4-8.2)
[2020-09-10 09:39] LABS: ALBUMIN 2.6 g/dL (3.4-5.0)
--- NOTE | 2020-09-10 11:30 | NUR ---
BLOOD SUGAR LEVEL AT 11:30AM 257MG RISS WAS ADMINISTRATED LEFT ARM WELL TOLERATED.
[2020-09-10 12:00] VITALS: BP 137/84
[2020-09-10] MEDS ORDERED: CEPHALEXIN500 M1 PO (13:59)
--- NOTE | 2020-09-10 14:05 | NUR ---
SPOKE WITH DR MCGINNIS. ORDERS ENTERED BY MD FOR DISCHARGE HOME. FOLLOWUP WITH PCP IN 1-2 WEEKS. HE IS SETTING UP HER HOME MEDS BY CALLING [facility] IN [place]. CALL TO EDUCATIONAL ADVISER, SPOKE WITH DESIRE. SHE STATES "SPOKE WITH DR MCGINNIS AND PT IS OK TO GO HOME, NO OXYGEN NEEDED FOR HOME USE." PLAN FOR DISCHARGE HOME THIS AFTERNOON.
--- NOTE | 2020-09-10 15:30 | NUR ---
PATIENT READY TO D/C.IV WAS D/C INTACT WELL TOERATED.VS WAS TAKEN WNL.NO PAIN.NO ESTRESS NOTED.NO SOB.FOLLOWING MD ORDER NEW MEDICATION WAS ORDER TO RIDE AID.DC INSTRUCTION WAS GIVEN PATIENT AND FAMILY VERBALIZED UNDERSTANDING.
== END 2020-09-10 15:30 | disposition home or self-care (01) | DRG 720 ==
LOC: ED 20:32 → DU 09-08 03:11
PROVIDERS: Emergency Medicine; ADMIT Hospitalist; ATTEND Hospitalist
DX: A41.9 Sepsis, unspecified organism (principal); E87.2 Acidosis; E11.65 Type 2 diabetes mellitus with hyperglycemia; I10 Essential (primary) hypertension; Z20.828 Contact with and (suspected) exposure to other viral communicable diseases
CPT/HCPCS: 82962; 83880; 85378; 87804; C9113; G0378; J0456; J0696; J1100; J1650; J1815; J7030; U0003

== ENCOUNTER 2020-10-27 21:27 | Inpatient (IN) | payer OTHER, MEDICARE ==
[~2020-10-27] VITALS: Ht 167.6 cm; Wt 77.1 kg
[~2020-10-27 21:27] MED LIST changes: +CEPHALEXIN500 M1 PO
[2020-10-27 21:51] VITALS: Ht 167.6 cm; Wt 77.1 kg
[2020-10-28 01:13] LABS: BASOPHIL % 0.6 % (0.2-1.3); PLATELET COUNT 190 x10^3mcL (179-408)
[2020-10-28 01:16] LABS: RED CELL DISTRIBUTION WIDTH 16.6 % (12.3-17.7)
[2020-10-28 01:22] LABS: CALCIUM 10.4 mg/dL (8.5-10.1); CARBON DIOXIDE 26.2 mmol/L (21-32); CHLORIDE SERUM 96 mmol/L (98-107); CREATININE SERUM 1.3 mg/dL (0.6-1.0); GLUCOSE SERUM 396 mg/dL (74-106); POTASSIUM SERUM 4.6 mmol/L (3.5-5.1); SODIUM SERUM 134 mmol/L (136-145)
[2020-10-28 01:27] LABS: ALBUMIN 4.1 g/dL (3.4-5.0); ALKALINE PHOSPHATASE 89 U/L (46-116); ALT/SGPT 28 U/L (14-59); AST/SGOT 25 U/L (15-37); BILIRUBIN TOTAL 0.77 mg/dL (0.20-1.00)
[2020-10-28 01:32] LABS: TOTAL PROTEIN, SERUM 8.7 g/dL (6.4-8.2)
[2020-10-28 01:59] LABS: microscopic required? YES; urine erythrocyte TRACE (NEGATIVE)
[2020-10-28 08:24] VITALS: BP 152/94
[2020-10-28 09:12] VITALS: BP 136/75
[2020-10-28 09:47] LABS: BASOPHIL % 0.3 % (0.2-1.3); PLATELET COUNT 185 x10^3mcL (179-408)
[2020-10-28 10:15] LABS: CALCIUM 9.1 mg/dL (8.5-10.1); CARBON DIOXIDE 27.5 mmol/L (21-32); CHLORIDE SERUM 102 mmol/L (98-107); CREATININE SERUM 1.2 mg/dL (0.6-1.0); GLUCOSE SERUM 271 mg/dL (74-106); MAGNESIUM 1.7 mg/dL (1.8-2.4); PHOSPHOROUS 3.3 mg/dL (2.5-4.9); SODIUM SERUM 138 mmol/L (136-145)
[2020-10-28 10:19] LABS: rbc morphology (normal/abnorm) ABNORMAL (NORMAL)
[2020-10-28 16:34] VITALS: BP 140/95
[2020-10-28 16:35] VITALS: BP 105/59
[2020-10-28 20:30] VITALS: BP 105/71
[2020-10-29 05:35] VITALS: BP 123/60
[2020-10-29 07:59] LABS: BASOPHIL % 0.8 % (0.2-1.3); PLATELET COUNT 171 x10^3mcL (179-408)
[2020-10-29 08:10] LABS: RED CELL DISTRIBUTION WIDTH 16.5 % (12.3-17.7)
[2020-10-29 08:25] LABS: CALCIUM 8.7 mg/dL (8.5-10.1); CARBON DIOXIDE 25.8 mmol/L (21-32); CHLORIDE SERUM 105 mmol/L (98-107); CREATININE SERUM 1.3 mg/dL (0.6-1.0); GLUCOSE SERUM 166 mg/dL (74-106); MAGNESIUM 1.8 mg/dL (1.8-2.4); PHOSPHOROUS 3.6 mg/dL (2.5-4.9); POTASSIUM SERUM 3.5 mmol/L (3.5-5.1); SODIUM SERUM 140 mmol/L (136-145)
[2020-10-29 08:37] VITALS: BP 93/52
[2020-10-29 12:36] LABS: rbc morphology (normal/abnorm) ABNORMAL (NORMAL)
[2020-10-29 12:38] VITALS: BP 102/65
[2020-10-29 17:59] VITALS: BP 105/64
[2020-10-29 20:56] VITALS: BP 114/65
[2020-10-30 06:08] VITALS: BP 107/55
[2020-10-30 08:00] LABS: BASOPHIL % 0.7 % (0.2-1.3); PLATELET COUNT 153 x10^3mcL (179-408)
[2020-10-30 08:07] VITALS: BP 104/61
[2020-10-30 08:15] LABS: CALCIUM 8.8 mg/dL (8.5-10.1); CARBON DIOXIDE 30.1 mmol/L (21-32); CHLORIDE SERUM 103 mmol/L (98-107); CREATININE SERUM 1.1 mg/dL (0.6-1.0); GLUCOSE SERUM 174 mg/dL (74-106); POTASSIUM SERUM 4.5 mmol/L (3.5-5.1); SODIUM SERUM 138 mmol/L (136-145)
[2020-10-30 08:55] LABS: RED CELL DISTRIBUTION WIDTH 16.3 % (12.3-17.7)
[2020-10-30 09:07] LABS: rbc morphology (normal/abnorm) NORMAL (NORMAL)
[2020-10-30 16:48] VITALS: BP 114/68
[2020-10-30] MEDS ORDERED: MERREM500 MG IV (17:06)
[2020-10-30 17:37] VITALS: BP 114/68
== END 2020-10-30 18:45 | DRG 720 ==
LOC: ED 21:27 → DU 23:53 → MU 23:53 → DU 10-28 06:19
PROVIDERS: Emergency Medicine; Internal Medicine; ADMIT Family Medicine; ATTEND Family Medicine
DX: A41.9 Sepsis, unspecified organism (principal); N17.0 Acute kidney failure with tubular necrosis; G93.41 Metabolic encephalopathy; N39.0 Urinary tract infection, site not specified; E86.0 Dehydration; E11.9 Type 2 diabetes mellitus without complications; I10 Essential (primary) hypertension; E87.1 Hypo-osmolality and hyponatremia; E83.52 Hypercalcemia; Z20.822 Contact with and (suspected) exposure to COVID-19; Z79.899 Other long term (current) drug therapy
CPT/HCPCS: 82962; 83880; 92526-GN; 92610-GN; 97116-GP; 97530-GP; G0378; J0696; J1815; J2185; J7030; J7050; J7060